=== PATIENT | female | born 1995 | race Caucasian/White ===

== ENCOUNTER 2023-04-06 10:41 | Emergency (ER) | payer MEDICAID ==
[~2023-04-06] VITALS: Ht 172.7 cm; Wt 65.8 kg
[2023-04-06 10:50] VITALS: BP 124/57; TEMP 98.2
[2023-04-06] MEDS ORDERED: CEPH500C2 PO (13:02)
[2023-04-06] MEDS ORDERED: SULF1TAB48 PO (13:02)
[2023-04-06 13:04] VITALS: O2SAT 98
== END 2023-04-06 13:05 | disposition home or self-care (01) ==
LOC: ER 10:55
DX: K61.0 Anal abscess (principal)

== ENCOUNTER 2023-04-10 03:24 | Inpatient (IN) | payer MEDICAID ==
[~2023-04-10] VITALS: Ht 172.7 cm; Wt 74.8 kg
[~2023-04-10 03:24] MED LIST: CEPH500C2 PO; SULF1TAB48 PO
[2023-04-10] MEDS ORDERED: IV NS 0.9% 1,000 ML BAG IV ONE (04:00)
[2023-04-10] MEDS ORDERED: ONDANSETRON HCL/PF 4 MG/2 ML VIAL IVP ONE (04:00)
[2023-04-10] MEDS ORDERED: PIPERACILLIN /TAZOBACTAM 3.375 G in IV D5W 50 ML IV ONE (04:00)
[2023-04-10] MEDS ORDERED: MORPHINE SULFATE INJ 2 MG/ML DISP.SYRIN IV ONE (04:00)
[2023-04-10] MEDS ORDERED: PIPERACI/TAZO 3.375GM/D5W 50ML PB IV ONE (04:18)
[2023-04-10] MEDS ORDERED: ONDANSETRON HCL/PF 4 MG/2 ML VIAL ONE (04:18)
[2023-04-10] MEDS ORDERED: MORPHINE SULFATE INJ 4 MG/ML DISP.SYRIN ONE (04:19)
[2023-04-10 04:28] LABS: BASOPHILS # (AUTO) 0.2 K/uL (0.0-0.2); BASOPHILS % (AUTO) 1.7 % (0.0-2.0); EOSINOPHILS # (AUTO) 0.2 K/uL (0.0-0.7); EOSINOPHILS % (AUTO) 1.9 % (0.0-6.0); HEMATOCRIT 44 % (33-45); HEMOGLOBIN 14.1 g/dL (11.5-14.8); LYMPHOCYTES # (AUTO) 2.2 K/uL (0.8-4.8); LYMPHOCYTES % (AUTO) 17.7 % (20.0-44.0); MEAN CORPUSCULAR HEMOGLOBIN 29 PG (26.0-33.0); MEAN CORPUSCULAR HGB CONC 33 g/dl (31.0-36.0); MEAN CORPUSCULAR VOLUME 90 fL (82-100); MONOCYTES # (AUTO) 0.7 K/uL (0.1-1.30); MONOCYTES % (AUTO) 5.9 % (2.0-12.0); NEUTROPHILS # (AUTO) 9.1 K/uL (1.8-8.9); NEUTROPHILS % (AUTO) 72.8 % (43.0-81.0); PLATELET COUNT (AUTO) 301 K/uL (150-450); RED BLOOD CELL COUNT(AUTO) 4.86 MIL/uL (4.0-5.2); RED CELL DISTRIBUTION WIDTH 13.2 % (11.5-15.0); WHITE BLOOD COUNT (AUTO) 12.6 K/uL (4.3-11.0)
[2023-04-10 04:29] LABS: APPEARANCE,URINE CLEAR (CLEAR); BILIRUBIN,URINE NEGATIVE (NEGATIVE); COLOR,URINE YELLOW (YELLOW); KETONES,URINE NEGATIVE (NEGATIVE); NITRITE, URINE NEGATIVE (NEGATIVE); PROTEIN,URINE NEGATIVE (NEGATIVE); UGLUCOSE NEGATIVE (NEGATIVE); UROBILINOGEN,URINE 0.2 EU/dL (0.2)
[2023-04-10 04:38] LABS: BLOOD, URINE 1+ Ery/uL (NEGATIVE); LEUKOCYTE ESTERASE ,URINE TRACE (NEGATIVE)
[2023-04-10 04:49] LABS: ADD URINE CULTURE NO; BACTERIA,URINE 1+ /HPF (None Seen)
[2023-04-10 04:50] LABS: ALBUMIN 3.5 g/dL (3.4-5.0); BILIRUBIN,DIRECT 0.1 mg/dL (0.0-0.2); BILIRUBIN,TOTAL 0.2 mg/dL (0.2-1.0); CALCIUM, SERUM 8.8 mg/dL (8.5-10.1); POTASSIUM 3.9 mmol/L (3.5-5.1)
[2023-04-10] MEDS ORDERED: IOHEXOL-300 100 ML VIAL IV ONE (04:58)
[2023-04-10] MEDS ORDERED: CT SWABBABLE VALVE TRANS SET 1 EA INFUS.SET MC ONE (04:59)
[2023-04-10] MEDS ORDERED: IV NS 0.9% 250 ML IV ONE (04:59)
[2023-04-10 06:11] LABS: PREGNANCY TEST URINE QUAL NEGATIVE (NEGATIVE)
[2023-04-10 07:06] VITALS: O2SAT 96
[2023-04-10] MEDS ORDERED: FLUO20CA42 PO (10:48)
[2023-04-10] MEDS ORDERED: birth control PO (10:49)
[2023-04-10] MEDS ORDERED: ZOLPIDEM TARTRATE 5 MG TABLET PO PRN (11:30)
[2023-04-10] MEDS ORDERED: ACETAMINOPHEN 325 MG TABLET PO PRN (11:30)
[2023-04-10] MEDS ORDERED: ONDANSETRON 4 MG TAB.RAPDIS PO PRN (11:30)
[2023-04-10] MEDS ORDERED: HYDROCODONE/APAP 5/325MG TABLET PO PRN (11:30)
[2023-04-10] MEDS ORDERED: Potassium Chloride 10 MEQ in IV D5/ 0.9% NACL 1,000 ML IV SCH (12:00)
[2023-04-10] MEDS ORDERED: PIPERACILLIN /TAZOBACTAM 3.375 G in IV D5W 50 ML IV SCH (12:00)
[2023-04-10] MEDS ORDERED: LIDOCAINE 2%-EPI 1:100,000 MDV 50 ML IJ ONE (13:00)
[2023-04-10] MEDS ORDERED: LIDOCAINE 2%-EPI 1:100,000 30 ML VIAL TP ONE (13:00)
[2023-04-10] MEDS ORDERED: MORPHINE SULFATE INJ 2 MG/ML DISP.SYRIN IV PRN (13:00)
[2023-04-10 16:00] VITALS: BP 119/71; TEMP 98.7; O2SAT 99
[2023-04-10] MEDS ORDERED: POLYETHYLENE GLYCOL 3350 17 GM POWD.PACK PO SCH (22:00)
[2023-04-11] MEDS ORDERED: BIRTH CONTROL PO SCH (09:00)
[2023-04-11] MEDS ORDERED: FLUOXETINE HCL 20 MG CAPSULE PO SCH (09:00)
== END 2023-04-10 17:30 | disposition home health service (06) | DRG 254 ==
LOC: ER 03:28 → MED 11:04
PROVIDERS: ADMIT Internal Medicine; ATTEND Internal Medicine
PROC: 0D9Q0ZX Drainage of Anus, Open Approach, Diagnostic (ICD-10-PCS; principal; 2023-04-10)
DX: K61.0 Anal abscess (principal); L03.315 Cellulitis of perineum; Z79.899 Other long term (current) drug therapy
CPT/HCPCS: 36415; 72193-TC; 80048-TC; 80076-TC; 81001; 83605-TC; 83690-TC; 84703-TC; 85025-TC; A4223; A6253; A6403; A6407; G0378; J2270; J2405; J2543; J3480; J3490; J7030; J7042; J7050; J7060; Q9967